=== PATIENT | male | born 1955 | race African-American/Black ===

== ENCOUNTER 2017-12-22 00:07 | Emergency (ER) | payer MEDICAID ==
[~2017-12-22] VITALS: Ht 180.3 cm; Wt 95.0 kg
[2017-12-22] MEDS ORDERED: MORPHINE SULFATE 4 MG/ML CPJ (NOT FOR IM USE) IV STA (01:48)
[2017-12-22] MEDS ORDERED: ONDANSETRON HCL 4MG/2ML VIAL IV STA (01:48)
[2017-12-22] MEDS ORDERED: SODIUM CHLORIDE 0.9% 1,000 ML IV ONE (01:48)
[2017-12-22] MEDS ORDERED: TETANUS, DIPHTHERIA, PERTUSSIS VAC/PF 0.5ML (>7YR OLD) IM ONE (02:00)
[2017-12-22] MEDS ORDERED: BACITRACIN ZINC OINT UDPKT TOP ONE (02:00)
[2017-12-22] MEDS ORDERED: CEFAZOLIN 1000MG PREMIX 50 ML IV ONE (02:00)
[2017-12-22] MEDS ORDERED: LIDOCAINE HCL 2% JELLY 5ML TOP ONE (02:00)
[2017-12-22 06:54] VITALS: BP 144/72
== END 2017-12-22 07:00 | disposition home or self-care (01) ==
LOC: ER 00:08
DX: S51.822A Laceration with foreign body of left forearm, initial encounter (principal); R51 Headache; R42 Dizziness and giddiness; M54.2 Cervicalgia; V49.40XA Driver injured in collision with unspecified motor vehicles in traffic accident, initial encounter; Y93.89 Activity, other specified; Y92.410 Unspecified street and highway as the place of occurrence of the external cause; Z23 Encounter for immunization
CPT/HCPCS: 70450; 71045; 72125; 73070; 73090; 90471; 90715; 96361; 96365; 96375; 99285; J0690; J2270; J2405; J7030; Z7610

== ENCOUNTER 2020-06-19 13:02 | Emergency (ER) | payer MEDICAID ==
[~2020-06-19] VITALS: Ht 175.3 cm; Wt 87.0 kg
[2020-06-19] MEDS ORDERED: IBUPROFEN 600MG TABLET PO ONE (13:30)
[2020-06-19 14:27] VITALS: BP 158/87
== END 2020-06-19 14:28 | disposition home or self-care (01) ==
LOC: ER 13:02
DX: Z48.02 Encounter for removal of sutures (principal); R03.0 Elevated blood-pressure reading, without diagnosis of hypertension
CPT/HCPCS: 99282

== ENCOUNTER 2020-06-21 12:07 | Emergency (ER) | payer MEDICAID ==
[~2020-06-21] VITALS: Ht 175.3 cm; Wt 86.0 kg
[2020-06-21 12:13] VITALS: BP 138/99
[2020-06-21] MEDS ORDERED: BACITRACIN ZINC OINT UDPKT TOP NR (13:45)
== END 2020-06-21 14:14 | disposition home or self-care (01) ==
LOC: ER 12:07
DX: Z48.00 Encounter for change or removal of nonsurgical wound dressing (principal); M79.642 Pain in left hand
CPT/HCPCS: 99282; 99283

== ENCOUNTER 2020-07-03 15:05 | Emergency (ER) | payer MEDICAID ==
[~2020-07-03] VITALS: Ht 175.3 cm; Wt 86.5 kg
[2020-07-03 15:09] VITALS: BP 128/81
== END 2020-07-03 17:04 | disposition home or self-care (01) ==
LOC: ER 15:05
DX: S61.412D Laceration without foreign body of left hand, subsequent encounter (principal); X58.XXXD Exposure to other specified factors, subsequent encounter
CPT/HCPCS: 99281

== ENCOUNTER 2020-07-07 01:36 | Emergency (ER) | payer MEDICAID ==
[~2020-07-07] VITALS: Ht 175.3 cm; Wt 187.0 kg
[2020-07-07 01:41] VITALS: BP 141/66
== END 2020-07-07 02:50 | disposition home or self-care (01) ==
LOC: ER 01:36
DX: S61.215D Laceration without foreign body of left ring finger without damage to nail, subsequent encounter (principal); Z48.02 Encounter for removal of sutures; X58.XXXD Exposure to other specified factors, subsequent encounter
CPT/HCPCS: 99281

== ENCOUNTER 2022-07-10 01:23 | Emergency (ER) | payer MEDICAID, OTHER ==
[~2022-07-10] VITALS: Ht 177.8 cm; Wt 86.0 kg
[2022-07-10] MEDS ORDERED: IBUPROFEN 600MG TABLET PO ONE (04:00)
[2022-07-10] MEDS: IBUPROFEN 200MG TABLET PO NR ×4 (04:45→05:13)
[2022-07-10] MEDS ORDERED: IBUP-2029 MT (05:15)
[2022-07-10 05:25] VITALS: BP 114/56
== END 2022-07-10 05:27 | disposition home or self-care (01) ==
LOC: ER 01:23
DX: S30.0XXA Contusion of lower back and pelvis, initial encounter (principal); E78.00 Pure hypercholesterolemia, unspecified; V58.4XXA Person boarding or alighting a pick-up truck or van injured in noncollision transport accident, initial encounter; Y93.89 Activity, other specified; Y92.89 Other specified places as the place of occurrence of the external cause
CPT/HCPCS: 73552; 99283